=== PATIENT | male | born 1960 | race Caucasian/White ===

== ENCOUNTER → 2017-09-11 | Outpatient (CLI) | payer BC, MEDICARE ==
[2017-09-11 20:15] LABS: Basophils % (A) 0 %; CH 30.7; CHCM 32.4; Eosinophils # (A) 0.4 k/uL (0-0.7); Eosinophils % (A) 3 %; HCT 43.4 % (39.0-53.0); HDW 2.38; HGB 13.8 gm/dL (13.0-17.5); Luc # (Auto) 0.27; Luc % (Auto) 2; Lymphocytes # (A) 3.5 k/uL (1.0-4.8); Lymphocytes % (A) 29 %; MCH 30.4 pg (25.0-35.0); MCHC 31.8 g/dL (31.0-37.0); MCV 95.5 fL (80.0-100.0); Mean Platelet Volume 8.1; Monocytes # (A) 0.8 k/uL (0-1.0); Monocytes % (A) 7 %; Neutrophils # (A) 7.1 k/uL (1.3-7.7); Neutrophils % (A) 59 %; RBC 4.54 m/uL (4.30-5.90); RDW 14.4 % (11.5-15.5); WBC 12.1 k/uL (3.8-10.6); WBC (Perox) 11.98
[2017-09-11 20:27] LABS: Calcium 9.1 mg/dL (8.4-10.2); Potassium 4.6 mmol/L (3.5-5.1); Total Bilirubin 0.2 mg/dL (0.2-1.3)
== END ==
LOC: MMGSC 16:18
PROVIDERS: ATTEND Family Medicine
DX: R10.11 Right upper quadrant pain (principal)
CPT/HCPCS: 36415; 80053; 85025

== ENCOUNTER → 2018-03-08 | Outpatient (CLI) | payer BC, MEDICARE ==
--- NOTE | 2018-03-08 15:44 | MR ---
EXAMINATION TYPE: MR shoulder RT wo con DATE OF EXAM: 03/08/2018 COMPARISON: NONE HISTORY: 58-year-old male with right shoulder pain, RTC or Abductor tendon tear TECHNIQUE: Multiplanar, multisequence imaging of the right shoulder is performed without contrast. FINDINGS: Unable to identify the long head biceps tendon within the bicipital groove. A discontinuous, thickene d intracapsular portion is seen, sagittal image 11. A complete tear is suspected. The subscapularis tendon is thin but the majority appears intact. Severe degenerative joint space narrowing with marginal spurring at the acromioclavicular joint. Infe rior spurring encroaches onto the subacromial space and has mass effect on to the myotendinous juncti on of the supraspinatus. There is superior subluxation of the humeral head which is within 6 mm of the undersurface of the acr omion. Extensive heterogeneity of both supraspinatus and infraspinatus tendon. There is a full-thickness tea r sparing the anterior supraspinatus tendon fibers and the far posterior infraspinous tendon fibers. Tear measures 3.4 cm AP with a protracted stump located at the level of the superior glenoid. The tea r spares 2.5 cm of the distal insertional fibers but the intervening gap measures approximately 3.2 c m wide. No significant atrophy of the rotator cuff musculature. Some delaminating fluid and reactive edema no goldie within the supraspinatus muscle belly. There may be mild diffuse thinning of superior humeral head articular cartilage. No high grade cartil age lesion is seen. There is high signal within the superior aspect of the posterior labrum, coronal image 19. No paralab ral cyst. No Hill-Sachs deformity or os acromiale. No suspicious bone marrow placement. Prominent cystic change along the bare area of the humeral head. IMPRESSION: 1. Full-thickness tear of the supraspinatus and infraspinatus tendons (3.4 cm AP) sparing the far ant erior and posterior fibers. The tear is located 2.5 cm proximal to the greater tuberosity footprint a nd the intervening gap measures 3.2 cm. No muscle atrophy at this time. Given some delaminating fluid and reactive edema within the supraspinatus muscle, a more acute tear is suggested. 2. The long head biceps tendon is suspected be torn. 3. Severe AC joint OA with inferior spurring encroaching onto the subacromial space. 4. Secondary glenohumeral joint instability. SLAP tear. There is mild cartilage thinning along the connelly perior humeral head articular surface.
--- NOTE | 2018-03-08 15:57 | MR ---
EXAMINATION TYPE: MR hip RT wo con DATE OF EXAM: 03/08/2018 COMPARISON: NONE HISTORY: 58-year-old male with right hip pain, abductor tendon tear TECHNIQUE: Multiplanar, multisequence images of the right hip were obtained without IV contrast. FINDINGS: Suggestion of slight superior and anterior femoral head neck junction osseous excrescences. Mild dege nerative spurring at both hips. On the right, moderate irregular cartilage loss suggested along the s uperolateral aspect of the hip joint on the coned-down coronal series. On the left, prominent subchon dral cystic changes noted along the acetabular roof. Some fibrocystic change noted along the anterior right femoral head neck junction. No evidence for hip fracture or AVN. Physiologic joint fluid on both sides. The sacrum and SI joints appear intact. Degenerative joint space narrowing and signal changes at the pubic symphysis. The rectus femoris origins are intact. Tiny intrasubstance tear at the left hamstrings origin involvi ng the semimembranosus. There is a small partial tear involving the posterosuperior gluteus medius attachment, coned-down cor onal image 15, full [id number] coronal image 20, axial image 13. There is heterogeneous signal of the lateral insertional fibers and some overlying soft tissue edema. Iliopsoas insertions appear intact. Normal course, caliber, and signal intensity of the sciatic nerves. Severe atrophy of the paraspinal musculature. No pelvic free fluid. Sigmoid diverticulosis. IMPRESSION: 1. Slight CAM deformities at both femoral head neck junctions. There is underlying moderate focal ost eoarthrosis involving the superolateral aspect of the hip joints probably due to chronic femoral acet abular impingement. 2. Right-sided insertional gluteal tendinopathy with a small partial tear of the posterosuperior glut eus medius attachment. No retracted gluteus medius/minimus tendon tear is seen. 3. Very tiny intrasubstance tear of the left hamstrings origin. 4. Osteitis pubis. 5. Sigmoid diverticulosis. 6. Severe atrophy of the paraspinal musculature. Correlate for any known chronic condition in this pa tient.
== END | disposition home or self-care (01) ==
LOC: RADMRIMAIN 07:16
PROVIDERS: ATTEND Orthopaedic Surgery
DX: M75.121 Complete rotator cuff tear or rupture of right shoulder, not specified as traumatic (principal); M19.011 Primary osteoarthritis, right shoulder; M77.9 Enthesopathy, unspecified; M25.311 Other instability, right shoulder; S43.401A Unspecified sprain of right shoulder joint, initial encounter; M21.951 Unspecified acquired deformity of right thigh; M16.11 Unilateral primary osteoarthritis, right hip; S76.011A Strain of muscle, fascia and tendon of right hip, initial encounter; M86.8X5 Other osteomyelitis, thigh

== ENCOUNTER → 2018-05-07 | Outpatient (CLI) | payer BC, MEDICARE ==
[2018-05-07 14:02] LABS: Blood Urea Nitrogen 14 mg/dL (9-20)
--- NOTE | 2018-05-07 16:59 | CT ---
EXAMINATION TYPE: CT lumbar spine wo con DATE OF EXAM: 05/07/2018 COMPARISON: HISTORY: Patient complains of increasing chronic low back pain with radiation bilaterally to the extr emities. CT DLP: 1011 mGycm CONTRAST: CT scan of the lumbar is performed , patient injected with mL of . TECHNIQUE: CT of the lumbar spine is performed on a spiral scan at 3 mm thick sections. Reconstructed images are performed in the coronal and sagittal planes. FINDINGS: T11-T12: No focal disc herniation is evident. No spinal canal stenosis or neural foraminal stenosis i s present. T12-L1: Vacuum disc phenomenon is present. There is a step-off from T11 to T12 with a mild retrograde spondylolisthesis. No spinal canal stenosis is present. Some wedge deformity at T12 is present. L1-L2: Pedicle screws are present L1 and L2. No spinal canal stenosis or neural foraminal stenosis pr esent. Disc spacers present L1-L2. L2-L3: Marked facet hypertrophy is present. No spinal canal stenosis or neural foraminal stenosis is present. Some lateral canal narrowing may be developing from facet hypertrophy. L3-L4: Marked facet changes are present posteriorly. No spinal canal stenosis or neural foraminal clyde nosis is present. L4-L5: No focal disc herniation or significant disc bulge is evident. No spinal canal stenosis or n eural foraminal stenosis is present L5-S1: There is a grade 2 spondylolisthesis of L5 anterior on S1. No spinal canal stenosis is present . There is exaggeration of the lumbar lordosis. Sacroiliac joint degenerative vacuum phenomenon is pres ent. IMPRESSION: 1. Grade 2 spondylolisthesis of L5 anterior on S1. 2. Mild wedge deformity likely old T12.
--- NOTE | 2018-05-07 23:58 | MR ---
EXAMINATION TYPE: MR lumbar spine wo/w con DATE OF EXAM: 05/07/2018 COMPARISON: HISTORY: LBP, BLE radic x several years, hx multiple surgeries TECHNIQUE: Multiplanar, multisequence images of the lumbar spine were acquired utilizing [address] gadolinium contrast. There is 10 mm anterior subluxation of L5 in relation S1. There is apparent old posterior fusion surg adan at L5-S1. The lumbar neural foramina are fairly well-maintained. There is metal artifact from pos terior fusion surgery at L2 L1 level. There is narrowing of T12-L1 and L1-L2 disc spaces. There is a 5 mm retrolisthesis of T12 in relation to L1. I see no significant spinal stenosis. There is no lumba r paraspinal mass. I see no focal bony destructive process. Contrast images show no pathologic enhanc ement. There is 15% wedging of T12 and T11. There is an oblique low signal line through the T12 verte bral body on the posterior aspect. IMPRESSION: There is a first-degree L5-S1 spondylolisthesis at appears slightly worse than old MR scan of 09/15/20 10. There are mild compression fractures of T12 and T11. T12 appears more compressed than old exam an d there is probably an acute fracture through the posterior T12 vertebral body. T11 appears stable.. No spinal stenosis. There is a T12-L1 retrolisthesis that is new compared to old exam.
== END | disposition home or self-care (01) ==
LOC: RADMRIMAIN 13:24
PROVIDERS: ATTEND Orthopaedic Surgery
DX: M43.17 Spondylolisthesis, lumbosacral region (principal); M48.54XA Collapsed vertebra, not elsewhere classified, thoracic region, initial encounter for fracture
CPT/HCPCS: 82565; 84520; 72131; 72158; 36415; A9581

== ENCOUNTER → 2021-04-26 | Outpatient (CLI) | payer BC, MEDICARE ==
--- NOTE | 2021-04-26 13:38 | MR ---
EXAMINATION TYPE: MR lumbar spine wo con DATE OF EXAM: 04/26/2021 COMPARISON: CT 05/07/2018, MRI 05/07/2018 HISTORY: Low back pain into lower extremities, multiple surgeries, spinal stenosis TECHNIQUE: Multiplanar, multisequence images of the lumbar spine were acquired. L1-L2: There are postoperative changes with resultant susceptibility artifact. L2-L3: There is adjacent postoperative changes resulting in susceptibility artifact with mild bilater al neural foraminal narrowing. L3-L4: There is no significant central canal stenosis or neural foraminal narrowing. Bony fusion is s een in the posterior elements. L4-L5: There is no definite central canal stenosis or neural foraminal narrowing. There is bony fusio n seen in the posterior elements. L5-S1: There is moderate anterior spondylolisthesis with facet arthropathy resulting in moderate righ t and mild left neural foraminal narrowing and mild central canal stenosis. The patient is status post posterior fusion of at least T11-L2 with significant susceptibility artifa ct. Patient is status post moderate anterior spondylolisthesis of L5 on S1, similar to the prior exam . IMPRESSION: 1. Extensive postoperative changes, as described, limited evaluation due to susceptibility artifact. 2. Unchanged moderate anterior spondylolisthesis of L5 on S1. 3. Multilevel disc disease and osteoarthritic changes of the lumbar spine.
== END | disposition home or self-care (01) ==
LOC: RADMRIMAIN 10:32
PROVIDERS: ATTEND Orthopaedic Surgery
DX: M51.16 Intervertebral disc disorders with radiculopathy, lumbar region (principal); M47.26 Other spondylosis with radiculopathy, lumbar region; M43.17 Spondylolisthesis, lumbosacral region
CPT/HCPCS: 72148

== ENCOUNTER 2022-02-23 06:00 | Day surgery (SDC) | payer BC, MEDICARE ==
[2022-02-22 13:01] VITALS: BMI 27.8
[~2022-02-23 06:00] MED LIST: CYCLOPENTOLATE 1% OPHTH SOLN 2 ML BTL OP PRN; MOXIFLOXACIN HCL 0.5% DROPS 3 ML BTL OP PRN; PHENYLEPHRINE 2.5% OPHTH DRP 2ML OP PRN; TETRACAINE 0.5% OPHTH (PF) DROPS 4 ML BTL OP PRN; TIMOLOL 0.5% OPHTH DROPS 5 ML BTL OP PRN
[2022-02-23] MEDS ORDERED: LACTATED RINGERS 1,000 ML IV SCH (06:24)
[2022-02-23] MEDS ORDERED: LIDOCAINE 1% (10MG/ML) FOR IV START INTRADERMA PRN (06:24)
[2022-02-23] MEDS ORDERED: LACTATED RINGERS 1,000 ML IV ONE (06:39)
[2022-02-23 06:50] VITALS: TEMP 98.2
[2022-02-23] MEDS ORDERED: MIDAZOLAM 2 MG/2 ML VIAL ONE (06:55)
[2022-02-23] MEDS ORDERED: fentaNYL (PF) 50 MCG/ML 2 ML AMP ONE (06:55)
[2022-02-23] MEDS ORDERED: HYALURONATE SODIUM INTRAOCULAR 1 EACH SYRINGE (12MG/ML) INTRAOCULA ONE (07:19)
[2022-02-23] MEDS ORDERED: BALANCED SALT IRRIG SOLN COMB2 15 ML IRRIG.SOLN INTRAOCULA ONE (07:24)
[2022-02-23] MEDS ORDERED: LIDOCAINE 1% (PF) 10MG/ML VIAL MISCELLANE ONE (07:25)
--- NOTE | 2022-02-23 07:41 | P.OP ---
Date of Procedure: 02/23/22 Preoperative Diagnosis: NS & PSC Postoperative Diagnosis: same Procedure(s) Performed: PIOL< OS Implants: MX60E 21.50 Anesthesia: MAC Surgeon: Niall Gan Pathology: none sent Condition: stable Disposition: same day Indications for Procedure: blurry vision Operative Findings: no complications
[2022-02-23 08:07] VITALS: BP 111/73; PULSE 68; RESP 16
--- NOTE | 2022-02-24 10:04 | OP ---
OPERATIVE REPORT DATE OF SERVICE: February 23, 2022. PROCEDURE: Phacoemulsification of cataract and intraocular lens implant of the left eye. PREOPERATIVE DIAGNOSIS: Nuclear sclerosis. Posterior subcapsular cataract. POSTOPERATIVE DIAGNOSIS: Nuclear sclerosis. Posterior subcapsular cataract. OPERATION: Clear cornea phacoemulsification of cataract left, OS eye. SURGEON: Dr. Niall Gan ESTIMATED BLOOD LOSS: Zero. SPECIMEN TAKEN: None. NARRATIVE: After obtaining the appropriate consent, the patient was brought to the Operating Room where the patient was placed under cardiac monitoring and prepped and draped in the usual sterile manner. At the 5 o'clock position a 15 degree super sharp blade was used to create a paracentesis followed by instillation of 1% Xylocaine MPF 50:50 mix with BSS into the anterior chamber. This was followed by Amvisc to stabilize the anterior chamber. At the 3 o'clock position a self-sealing corneal flap incision was created using 2.8 mm rory keratome. A cystotome was used to initiate a continuous tear capsulorrhexis which was completed with the Utrata forceps. A Binkhorst cannula was used to hydrodissect the lens nucleus followed by hydrodelineation. Phacoemulsification of the lens was performed utilizing phacochop in 11.14 seconds at 18% power. The remaining cortical material was removed using the irrigation aspiration mode followed by additional 1% Xylocaine MPF into the anterior chamber followed by viscoelastic to stabilize the capsular bag. A [employer] MX 60 E 21.5 diopter posterior chamber lens was placed into the capsular bag without difficulty. The remaining viscoelastic material was removed from the anterior chamber with the irrigation/aspiration. Balanced salt solution was used to normalize the intraocular pressure. The incision was checked for watertight integrity. The patient then received two drops of 0.5% timolol followed by two drops Vigamox, was lightly patched and shielded in the usual manner. There were no complications from the procedure. The patient tolerated the procedure well and was returned to recovery in good condition. MMODL / IJN: [id number] /
== END 2022-02-23 08:27 | disposition home or self-care (01) ==
LOC: OR 06:00
PROVIDERS: ATTEND Ophthalmology
DX: H25.12 Age-related nuclear cataract, left eye (principal); I10 Essential (primary) hypertension; F17.200 Nicotine dependence, unspecified, uncomplicated; K21.9 Gastro-esophageal reflux disease without esophagitis; Z79.899 Other long term (current) drug therapy; Z98.890 Other specified postprocedural states
CPT/HCPCS: 66984; C1780; J2250; J3010; J2001

== ENCOUNTER 2022-03-09 06:24 | Day surgery (SDC) | payer BC, MEDICARE ==
[2022-03-08 12:01] VITALS: BMI 32.1
[~2022-03-09 06:24] MED LIST changes: -CYCLOPENTOLATE 1% OPHTH SOLN 2 ML BTL OP PRN; +LIDOCAINE 1% (10MG/ML) FOR IV START INTRADERMA PRN; -PHENYLEPHRINE 2.5% OPHTH DRP 2ML OP PRN
[2022-03-09 06:48] VITALS: RESP 16; TEMP 68.5
[2022-03-09] MEDS: CYCLOPENTOLATE 1% OPHTH SOLN 2 ML BTL OP PRN ×3 (06:50→07:05)
[2022-03-09] MEDS: PHENYLEPHRINE 2.5% OPHTH DRP 2ML OP PRN ×3 (06:53→07:13)
[2022-03-09] MEDS: LACTATED RINGERS 1,000 ML IV SCH ×2 (07:05→07:30)
[2022-03-09] MEDS ORDERED: MIDAZOLAM 2 MG/2 ML VIAL ONE (07:30)
[2022-03-09] MEDS ORDERED: fentaNYL (PF) 50 MCG/ML 2 ML AMP ONE (07:30)
[2022-03-09] MEDS ORDERED: HYALURONATE SODIUM INTRAOCULAR 1 EACH SYRINGE (12MG/ML) INTRAOCULA ONE (07:43)
[2022-03-09] MEDS ORDERED: LIDOCAINE 1% (PF) 10MG/ML VIAL SQ ONE (07:44)
[2022-03-09] MEDS ORDERED: BALANCED SALT IRRIG SOLN COMB2 15 ML IRRIG.SOLN INTRAOCULA ONE (07:44)
[2022-03-09] MEDS ORDERED: EPINEPHrine (PF) 0.3 ML in BALANCED SALT IRRIG SOLN COMB2 500 ML IRRIGATION ONE (07:45)
--- NOTE | 2022-03-09 07:54 | P.OP ---
Date of Procedure: 03/09/22 Preoperative Diagnosis: NSh & PSC Postoperative Diagnosis: same Procedure(s) Performed: PIOL< OD Implants: MX60E 21.00 Anesthesia: MAC Surgeon: Naill Gan Pathology: none sent Condition: stable Disposition: same day Indications for Procedure: blurry vision Operative Findings: no complications
[2022-03-09 08:28] VITALS: BP 101/67; PULSE 68
--- NOTE | 2022-03-09 14:32 | OP ---
OPERATIVE REPORT DATE OF SURGERY: 03/09/2022. PROCEDURE: Phacoemulsification of cataract and intraocular lens implant of the right eye. PREOPERATIVE DIAGNOSIS: Nuclear sclerosis, posterior subcapsular cataract. POSTOPERATIVE DIAGNOSIS: Nuclear sclerosis, posterior subcapsular cataract. ESTIMATED BLOOD LOSS: Zero. SPECIMEN TAKEN: None. NARRATIVE: After obtaining the appropriate consent, the patient was brought to the Operating Room, where the patient was placed under cardiac monitoring and prepped and draped in the usual sterile manner. At the 11 o'clock position a 15-degree super sharp blade was used to create a paracentesis followed by instillation of 1% Xylocaine MPF 50:50 mix with BSS into the anterior chamber. This was followed by Amvisc to stabilize the anterior chamber. At the 9 o'clock position a self-sealing corneal flap incision was created using 2.8 mm rory keratome. A cystotome was used to initiate a continuous tear capsulorrhexis which was completed with the Utrata forceps. A Binkhorst cannula was used to hydrodissect the lens nucleus followed by hydrodelineation. Phacoemulsification of the lens was performed utilizing phacochop in 8.3 seconds at 10% power. The remaining cortical material was removed using the irrigation aspiration mode followed by additional 1% Xylocaine MPF into the anterior chamber followed by viscoelastic to stabilize the capsular bag. A [employer] MX60E 21.0 diopter posterior chamber intraocular lens was placed into the capsular bag without difficulty. The remaining viscoelastic material was removed from the anterior chamber with the irrigation/aspiration. Balanced salt solution was used to normalize the intraocular pressure. The incision was checked for watertight integrity. The patient then received two drops of 0.5% timolol followed by two drops Vigamox, was lightly patched and shielded in the usual manner. There were no complications from the procedure. The patient tolerated the procedure well and was returned to Recovery in good condition. MMODL / IJN: [id number] /
== END 2022-03-09 08:45 | disposition home or self-care (01) ==
LOC: OR 06:24
PROVIDERS: ATTEND Ophthalmology
DX: H25.11 Age-related nuclear cataract, right eye (principal); H25.041 Posterior subcapsular polar age-related cataract, right eye; H43.813 Vitreous degeneration, bilateral; H52.4 Presbyopia; Z98.42 Cataract extraction status, left eye; Z96.1 Presence of intraocular lens; Z98.1 Arthrodesis status; Z98.890 Other specified postprocedural states; F17.210 Nicotine dependence, cigarettes, uncomplicated; I10 Essential (primary) hypertension; K21.9 Gastro-esophageal reflux disease without esophagitis; Z79.899 Other long term (current) drug therapy; Z79.891 Long term (current) use of opiate analgesic
CPT/HCPCS: 66984; C1780; J2250; J0171; J3010; J2001

== ENCOUNTER 2024-08-06 09:20 | Day surgery (SDC) | payer BC, MEDICARE ==
[~2024-08-06 09:20] MED LIST changes: -MOXIFLOXACIN HCL 0.5% DROPS 3 ML BTL OP PRN; +ONDANSETRON 4 MG/2 ML VIAL IVP PRN; -TETRACAINE 0.5% OPHTH (PF) DROPS 4 ML BTL OP PRN; -TIMOLOL 0.5% OPHTH DROPS 5 ML BTL OP PRN
[2024-08-06] MEDS: IV FLUID CONTINUATION 1,000 ML IV ONE (09:29)
[2024-08-06 09:52] VITALS: TEMP 98
[2024-08-06] MEDS: LACTATED RINGERS 1,000 ML IV SCH (09:52)
[2024-08-06] MEDS ORDERED: PROPOFOL 10 MG/ML 20 ML VIAL IV ONE (10:14)
--- NOTE | 2024-08-06 10:16 | P.GSHP ---
History of Present Illness H&P Date: 08/06/24 Chief Complaint: Colon cancer screening 64-year-old male here for colonoscopy. Last colonoscopy 7 years ago. History of colon polyps. No bowel complaints. No family history of colon cancer. Past Medical History Past Medical History: No Reported History History of Any Multi-Drug Resistant Organisms: None Reported Past Surgical History: Back Surgery Additional Past Surgical History / Comment(s): spinal fsuion and neck fusion , decompression of 7 th nerve in cranium, Past Anesthesia/Blood Transfusion Reactions: No Reported Reaction Smoking Status: Current some day smoker - Past Family History Father Family Medical History: Cancer Additional Family Medical History / Comment(s): lung Medications and Allergies Home Medications Medication Instructions Recorded Confirmed Type HYDROcodone/APAP 10-325MG [[place] 1 tab PO Q6HR PRN 02/22/22 08/01/24 History 10-325] Omeprazole 20 mg PO QAM 02/22/22 08/06/24 History Allergies Allergy/AdvReac Type Severity Reaction Status Date / Time No Known Allergies Allergy Verified 08/06/24 09:44 Surgical - Exam Vital Signs Temp Pulse Resp BP Pulse Ox 98 F 84 16 170/94 97 08/06/24 09:44 08/06/24 09:44 08/06/24 09:44 08/06/24 09:44 08/06/24 09:44 Physical exam: General: Well-developed, well-nourished HEENT: Normocephalic, sclerae nonicteric Abdomen: Nontender, nondistended Extremities: No edema Neuro: Alert and oriented Assessment and Plan (1) Colon cancer screening Narrative/Plan: Will proceed with colonoscopy at this time. Current Visit: Yes Status: Acute Code(s): Z12.11 - ENCOUNTER FOR SCREENING FOR MALIGNANT NEOPLASM OF COLON SNOMED Code(s): 534705777
--- NOTE | 2024-08-06 10:35 | P.PCN ---
Date of Procedure: 08/06/24 Procedure(s) Performed: PREOPERATIVE DIAGNOSIS: Screening with history of polyps POSTOPERATIVE DIAGNOSIS: Ulceration ascending colon, hepatic flexure polyp, descending colon polyp, sigmoid colon polyp, diverticulosis PROCEDURE: Colonoscopy with snare polypectomy and biopsy ANESTHESIA: MAC SURGEON: Saul Lyles M.D. SPECIMENS: Ulcer, polyps ENDOSCOPIC PROCEDURE: The patient was placed on the endoscopy table in the left decubitus position. The Olympus colonoscope was inserted into the anus and passed under direct visualization to the base of the cecum. The appendiceal orifice was visualized. From that point the scope was slowly withdrawn inspecting all surfaces carefully. There were no neoplastic inflammatory or polypoid lesions throughout the cecum. In the ascending colon there was a hint of blood there when we first inspected the mucosa. As a obtained a better visualization of this area there was a small punctate ulceration measuring less than 1 cm in size. Biopsies of the ulcer site were taken x 2. This did not appear to have frankly malignant appearance. At the hepatic flexure a small polyp was identified and removed using the snare with cautery technique. The transverse colon was normal. A polyp in the descending and also sigmoid colon were both noted and removed using the snare with cautery technique. The remainder of the sigmoid and rectum was normal. The patient had mild to moderate diverticulosis. Digital rectal examination was normal. The patient was taken to the recovery room in stable condition per anesthesia guidelines. RECOMMENDATIONS: Await biopsy results. Will require short-term follow-up given the ascending colon ulceration. Will contact patient with biopsy findings.
[2024-08-06 11:03] VITALS: BP 165/81; PULSE 72; RESP 18
== END 2024-08-06 11:25 | disposition home or self-care (01) ==
LOC: ORWHC2ENDO 09:20
PROVIDERS: ATTEND Surgery
CPT/HCPCS: 45380; 45385; 88305

== ENCOUNTER → 2024-08-08 | Outpatient (CLI) | payer MEDICARE ==
--- NOTE | 2024-08-08 12:22 | CTL ---
EXAMINATION TYPE: CT Low Dose Lung DATE OF EXAM ORDERED: 08/08/2024 HISTORY: . Lung cancer screening, History of Smoking. CT DLP: 138.[address] CTDI: 3.6 mGy Automated exposure control for dose reduction was used. SCREENING VISIT: COMPARISON: None TECHNIQUE: Low dose computed tomography scan was performed through the chest at 1 mm thick sections a nd reconstructed images in multiple planes at 1 mm and [address] DIAGNOSTIC QUALITY: Satisfactory FINDINGS: Postsurgical change overlying the vertebral column including the thoracolumbar junction and cervical spine. Curvature of the spine with multilevel degenerative disc disease. Mild gynecomastia. Aorta measures a maximal diameter 4 cm compatible with borderline aneurysmal dilat ion. Mild atherosclerotic changes. Moderate coronary artery calcification and mild cardiomegaly. Calc ification near the aortic root. Trace pericardial fluid. Assessment for lymphadenopathy limited by noncontrast technique grossly no pathologic adenopathy iden tified. Mild to moderate emphysematous changes are seen. There is no evidence of consolidative pneumonia, pul monary fibrosis, or pulmonary edema. Vague groundglass changes noted lingular segment left upper lobe likely in the basis of atelectasis. Calcifications involving the central renal hilum likely are vascular bilaterally. A tiny hiatal herni a. There is a 2 mm subpleural nodule left lower lobe image 41 series 6. There is subpleural nodularity i nvolving the left hemidiaphragm measuring up to 6 mm. There is a small hiatal hernia. IMPRESSION: 1. COPD with pulmonary micronodules as discussed above which is too small to characterize but likely benign. Subpleural thickening or nodularity measuring up to 6 mm left lower lobe. Has a benign appear ance. 2. Moderate coronary artery calcifications. CT LUNG RAD AND CT CHEST RECOMMENDATION: Lung-Rad 3 Probably Benign: 6 month follow-up LDCT. Recommen d 6 month follow-up. [facility], , 08/08/2024 12:20 PM
== END | disposition home or self-care (01) ==
LOC: RADCTMAIN 08:19
PROVIDERS: ATTEND Family Medicine
CPT/HCPCS: 71271